=== PATIENT | female | born 1995 | race African-American/Black ===

== ENCOUNTER 2021-08-19 06:22 | Inpatient (IN) ==
[2021-08-19] MEDS: LACTATED RINGERS 1,000 ML IV SCH ×3 (07:14→17:55)
[2021-08-19] MEDS ORDERED: ONDANSETRON 4 MG/2 ML VIAL IV PRN (07:18)
[2021-08-19] MEDS ORDERED: MEPERIDINE 50 MG/1 ML VIAL IV PRN (07:18)
[2021-08-19] MEDS ORDERED: BUTORPHANOL 2 MG/ML VIAL IV PRN (07:18)
[2021-08-19 07:49] LABS: Basophils % 0.2 % (0.0-0.8); Eosinophils % 0.3 % (0.00-10.9); Hematocrit 36.5 VOL% (35.7-47.0); Hemoglobin 12.1 GM/DL (12.0-16.0); Immature Granulocytes % 0.5 %; Immature Granulocytes Absolute 0.06 #; Lymphocytes # 1.3 10*3/uL (1.4-4.0); Mean Corpuscular HGB Conc 33.2 GM/DL (32-36); Mean Corpuscular Volume 87.3 FL (87-102); Mean Platelet Volume 12.3 FL (9.6-12.0); Monocytes % 6.5 % (1.7-12.7); Neutrophils % 81.5 % (38.7-73.9); Platelet Count 206 T/CUMM (130-400); Red Blood Count 4.18 MC/CUMM (3.8-5.5); Red Cell Distribution Width 14.3 % (9.3-17.3); White Blood Count 11.8 T/CUMM (4-12)
[2021-08-19 08:09] LABS: Albumin 2.6 G/DL (3.4-5.0); Bilirubin,Total 1.7 MG/DL (0.20-1.00); Calcium 9.1 MG/DL (8.5-10.1); Osmolality,Calculated 267.1 MOS/KG (273-304); Potassium 3.7 MMOL/L (3.5-5.1); Total Protein 6.8 G/DL (6.4-8.2)
[2021-08-19] MEDS ORDERED: OXYTOCIN/LR 20 UNIT/1,000 ML BAG IV SCH (11:30)
[2021-08-19] MEDS ORDERED: LACTATED RINGERS 1,000 ML IV ONE (16:18)
[2021-08-19] MEDS ORDERED: FAMOTIDINE 20 MG/2 ML VIAL IV ONE (16:18)
[2021-08-19] MEDS ORDERED: ePHEDrine 50 MG/ML VIAL IV PRN (16:18)
[2021-08-19] MEDS ORDERED: diphenhydrAMINE 50 MG/1 ML VIAL IV PRN ×2 (16:18)
[2021-08-19] MEDS ORDERED: CITRIC ACID/SODIUM CITRATE 30 ML UDCUP PO ONE (16:18)
[2021-08-19] MEDS ORDERED: NALOXONE 0.4 MG/ML VIAL IV PRN (16:18)
[2021-08-19] MEDS ORDERED: LACTATED RINGERS 1,000 ML IV SCH (16:30)
[2021-08-19] MEDS ORDERED: fentaNYL 2 MCG/ROPIV 0.2% EPID 100 ML EPIDURAL SCH (16:30)
[2021-08-19 19:06] LABS: Bilirubin,Urine Negative (Negative); Blood, Urine Negative (Negative); Glucose,Urine (UA) Negative (Negative); Ketones,Urine 20 mg/dL (Negative); Mucus,Urine Occasional /LPF (Occasional); Nitrite,Urine Negative (Negative); Protein,Urine Negative; RBC,Urine <1 /HPF (0-4); Squamous Epithelial Cell,Urine Occasional /HPF (0-10); Urine Appearance CLEAR (Clear); Urine Color Yellow (Yellow); Urine Specific Gravity 1.008 (1.001-1.035); Urine Urobilinogen < 2.0 EU/DL (<2.0)
[2021-08-20] MEDS ORDERED: CARBOPROST TROMETHAMINE 250 MCG/ML AMP IM ONE (00:01)
[2021-08-20] MEDS ORDERED: SODIUM CHLORIDE 0.9% 0 ML IV ONE (00:01)
[2021-08-20] MEDS ORDERED: miSOPROStoL 200 MCG TABLET ONE (00:01)
[2021-08-20] MEDS ORDERED: TRANEXAMIC ACID 1,000 MG/10 ML VIAL ONE (00:01)
[2021-08-20] MEDS ORDERED: METHYLERGONOVINE 0.2 MG/1 ML AMP ONE (00:01)
[2021-08-20] MEDS: LACTATED RINGERS 1,000 ML IV SCH (00:06)
[2021-08-20 02:37] LABS: Cord Arterial Blood HCO3 18.4 MMOL/L
[2021-08-20 02:40] LABS: Cord Venous Blood HCO3 21.1 MMOL/L; Cord Venous Blood PCO2 47.9 MMHG; Cord Venous Blood PO2 26.1
[2021-08-20] MEDS ORDERED: IBUPROFEN 800 MG TABLET PO ONE (02:48)
[2021-08-20] MEDS ORDERED: LANOLIN 50% CREAM 0.3 OZ TUBE TOP PRN (04:27)
[2021-08-20] MEDS ORDERED: MEASLES/MUMPS/RUBELLA VACCINE 0.5 ML VIAL SUBCUT ONE (04:27)
[2021-08-20] MEDS ORDERED: WITCH HAZEL PADS 100/JAR TOP PRN (04:27)
[2021-08-20] MEDS ORDERED: DIPH/TET/ACEL PERT BOOSTER VACCINE 0.5 ML VIAL IM ONE (04:27)
[2021-08-20] MEDS ORDERED: BISACODYL 10 MG SUPP RECTAL PRN (04:27)
[2021-08-20] MEDS ORDERED: oxyCODONE/ACETAMINOPHEN 5-325 MG TABLET PO PRN ×2 (04:27)
[2021-08-20] MEDS ORDERED: OXYTOCIN/LR 20 UNIT/1,000 ML BAG IV ONE (04:27)
[2021-08-20] MEDS ORDERED: ACETAMINOPHEN 325 MG TABLET PO PRN (04:27)
[2021-08-20] MEDS ORDERED: HYDROCORTISONE 2.5% RECTAL CREAM 30 GM TUBE TOP PRN (04:27)
[2021-08-20] MEDS ORDERED: BENZOCAINE 20%/MENTHOL 0.5% SPRAY 56 GM CAN TOP PRN (04:27)
[2021-08-20] MEDS ORDERED: RHO(D) IMMUNE GLOBULIN 300 MCG SYRINGE IM ONE (04:27)
[2021-08-20] MEDS: IBUPROFEN 800 MG TABLET PO PRN (15:49)
[2021-08-20] MEDS: DOCUSATE SODIUM 100 MG CAPSULE PO SCH ×2 (15:56→21:28)
[2021-08-21 06:02] LABS: Basophils % 0.2 % (0.0-0.8); Eosinophils # 0.1 10*3/uL (0.0-0.87); Eosinophils % 0.4 % (0.00-10.9); Hematocrit 33.8 VOL% (35.7-47.0); Hemoglobin 10.8 GM/DL (12.0-16.0); Immature Granulocytes % 0.4 %; Immature Granulocytes Absolute 0.05 #; Lymphocytes # 1.7 10*3/uL (1.4-4.0); Lymphocytes % 14.6 % (21.3-54.2); Mean Corpuscular Volume 88.5 FL (87-102); Monocytes % 7.5 % (1.7-12.7); Neutrophils % 76.9 % (38.7-73.9); Platelet Count 180 T/CUMM (130-400); Red Blood Count 3.82 MC/CUMM (3.8-5.5); Red Cell Distribution Width 14.6 % (9.3-17.3); White Blood Count 11.4 T/CUMM (4-12)
[2021-08-21] MEDS: IBUPROFEN 800 MG TABLET PO PRN (08:17)
[2021-08-21] MEDS: DOCUSATE SODIUM 100 MG CAPSULE PO SCH (08:17)
[2021-08-21 09:05] VITALS: BP 122/78
== END 2021-08-21 14:10 | disposition home or self-care (01) | DRG 807 ==
LOC: N.LD 06:22 → N.OB 08-20 08:13
PROVIDERS: ADMIT Obstetrics & Gynecology; ATTEND Obstetrics & Gynecology